=== PATIENT | male | born 1960 | race Asian ===

== ENCOUNTER 2016-11-25 09:01 | Outpatient (CLI) | payer BC, OTHER ==
[2016-11-25 10:34] LABS: *BILIRUBIN,URIN NEGATIVE (NEGATIVE); *BLOOD, URINE NEGATIVE (NEGATIVE); *CLARITY,URINE CLEAR (CLEAR); *COLOR,URINE YELLOW (YELLOW); *KETONES,URINE NEGATIVE (NEGATIVE); *PROTEIN,URINE TRACE (NEGATIVE); *UROBILINOGEN,URINE 0.2 E.U./dl (NORMAL); LEUKOCYTE ESTERASE ,URINE NEGATIVE (NEGATIVE); NITRITE, URINE NEGATIVE (NEGATIVE); UGLUCOSE NEGATIVE (NEGATIVE)
[2016-11-25 11:01] LABS: BACTERIA,URINE NONE SEEN /HPF (NONE SEEN); BILIRUBIN,TOTAL 0.5 mg/dL (0.2-1.0); CREATININE 1.1 mg/dL (0.6-1.3); MUCUS,URINE MODERATE /LPF (0-FEW); POTASSIUM 3.7 mmol/L (3.5-5.1); RBC,URINE 0-3 /HPF (0-3); SQUAMOUS EPITHELIAL CELL,UR FEW /HPF (NONE SEEN); TOTAL PROTEIN, SERUM 8.4 g/dL (6.4-8.2); WBC,URINE 0-3 /HPF (0-3)
[2016-11-25 11:17] LABS: BASOPHILS # (AUTO) 0.1 K/uL (0.0-8.0); BASOPHILS % (AUTO) 0.9 % (0.0-2.0); EOSINOPHILS # (AUTO) 0.2 K/uL (0.0-0.7); EOSINOPHILS % (AUTO) 2.8 % (0.0-7.0); HEMATOCRIT 47.4 % (40-50); HEMOGLOBIN 16.3 G/DL (14.0-18.0); LYMPHOCYTES # (AUTO) 2.9 K/UL (0.8-4.8); LYMPHOCYTES % (AUTO) 42.5 % (20.5-51.5); MEAN CORPUSCULAR HEMOGLOBIN 31.1 UUG (27.0-31.0); MEAN CORPUSCULAR HGB CONC 34 g/dL (32.0-37.0); MEAN CORPUSCULAR VOLUME 90.6 FL (82.0-92.0); MONOCYTES # (AUTO) 0.4 K/UL (0.1-1.30); MONOCYTES % (AUTO) 6.4 % (0.0-11.0); NEUTROPHILS # (AUTO) 3.3 K/UL (1.8-8.9); NEUTROPHILS % (AUTO) 47.4 % (38.5-71.5); PLATELET COUNT (AUTO) 209 K/UL (150-450); RED BLOOD CELL COUNT(AUTO) 5.23 MIL/UL (4.7-6.1); WHITE BLOOD COUNT (AUTO) 6.9 K/UL (4.0-11.2)
[2016-11-27 12:10] LABS: HEPATITIS B SURFACE AB Reactive (.); HEPATITIS B SURFACE AG Positive (Negative)
== END 2016-11-25 23:59 | disposition home or self-care (01) ==
LOC: LAB 09:01
DX: C22.8 Malignant neoplasm of liver, primary, unspecified as to type (principal)
CPT/HCPCS: 36415; 85025; 86704; 86706; 86803; 87340

== ENCOUNTER 2017-04-07 07:31 | Outpatient (CLI) | payer BC, OTHER ==
[2017-04-07 08:36] LABS: BILIRUBIN,TOTAL 0.5 mg/dL (0.2-1.0); POTASSIUM 3.9 mmol/L (3.5-5.1); TOTAL PROTEIN, SERUM 8.1 g/dL (6.4-8.2)
[2017-04-07 08:44] LABS: THYROID STIMULATING HORMONE 0.925 mIU/mL (0.358-3.740)
[2017-04-07 08:46] LABS: BASOPHILS % (AUTO) 0.6 % (0.0-2.0); EOSINOPHILS # (AUTO) 0.2 K/uL (0.0-0.7); EOSINOPHILS % (AUTO) 3.1 % (0.0-7.0); HEMATOCRIT 48.4 % (40-50); HEMOGLOBIN 16.4 G/DL (14.0-18.0); LYMPHOCYTES # (AUTO) 2.7 K/UL (0.8-4.8); MEAN CORPUSCULAR HEMOGLOBIN 30.6 UUG (27.0-31.0); MEAN CORPUSCULAR HGB CONC 34 g/dL (32.0-37.0); MEAN CORPUSCULAR VOLUME 90.5 FL (82.0-92.0); MONOCYTES # (AUTO) 0.4 K/UL (0.1-1.30); MONOCYTES % (AUTO) 6.9 % (0.0-11.0); NEUTROPHILS # (AUTO) 3.2 K/UL (1.8-8.9); NEUTROPHILS % (AUTO) 47.4 % (38.5-71.5); PLATELET COUNT (AUTO) 203 K/UL (150-450); RED BLOOD CELL COUNT(AUTO) 5.35 MIL/UL (4.7-6.1); WHITE BLOOD COUNT (AUTO) 6.5 K/UL (4.0-11.2)
== END 2017-04-07 23:59 | disposition home or self-care (01) ==
LOC: LAB 07:31
DX: I10 Essential (primary) hypertension (principal); E78.5 Hyperlipidemia, unspecified; R73.01 Impaired fasting glucose
CPT/HCPCS: 82043; 82570; 84443; 85025

== ENCOUNTER 2017-10-06 07:30 | Outpatient (CLI) | payer BC, OTHER ==
[2017-10-06 08:45] LABS: BILIRUBIN,TOTAL 0.6 mg/dL (0.2-1.0); POTASSIUM 3.7 mmol/L (3.5-5.1); TOTAL PROTEIN, SERUM 8.3 g/dL (6.4-8.2)
[2017-10-06 10:10] LABS: BASOPHILS # (AUTO) 0.1 K/uL (0.0-8.0); BASOPHILS % (AUTO) 0.8 % (0.0-2.0); EOSINOPHILS # (AUTO) 0.2 K/uL (0.0-0.7); EOSINOPHILS % (AUTO) 2.6 % (0.0-7.0); HEMATOCRIT 47.2 % (36.7-47.1); HEMOGLOBIN 16.3 g/dL (12.5-16.3); LYMPHOCYTES # (AUTO) 2.8 K/uL (20.0-40.0); LYMPHOCYTES % (AUTO) 42.1 % (20.5-51.5); MEAN CORPUSCULAR HEMOGLOBIN 31.3 uug (23.8-33.4); MEAN CORPUSCULAR HGB CONC 35 g/dL (32.5-36.3); MEAN CORPUSCULAR VOLUME 90.4 fL (73.0-96.2); MONOCYTES # (AUTO) 0.5 K/uL (2.0-10.0); MONOCYTES % (AUTO) 7.1 % (0.0-11.0); NEUTROPHILS # (AUTO) 3.2 K/uL (1.8-8.9); NEUTROPHILS % (AUTO) 47.4 % (38.5-71.5); PLATELET COUNT (AUTO) 196 K/uL (152-348); RED BLOOD CELL COUNT(AUTO) 5.22 MIL/uL (4.06-5.63); WHITE BLOOD COUNT (AUTO) 6.7 K/uL (3.6-10.2)
== END 2017-10-06 23:59 | disposition home or self-care (01) ==
LOC: LAB 07:30
DX: Z00.00 Encounter for general adult medical examination without abnormal findings (principal); I10 Essential (primary) hypertension; E78.5 Hyperlipidemia, unspecified; E66.9 Obesity, unspecified; R73.01 Impaired fasting glucose
CPT/HCPCS: 36415; 82306; 85025

== ENCOUNTER 2018-03-08 13:35 | Emergency (ER) | payer BC, OTHER ==
[~2018-03-08] VITALS: Ht 167.6 cm; Wt 81.6 kg
--- NOTE | 2018-03-08 13:58 | NUR ---
Patient discharged to home in stable conditon. Written and verbal after care instructions given. Patient verbalizes understanding of instructions.
[2018-03-08 14:05] VITALS: BP 149/93
== END 2018-03-08 14:05 | disposition home or self-care (01) ==
LOC: ER 13:35
DX: J20.9 Acute bronchitis, unspecified (principal); I10 Essential (primary) hypertension
CPT/HCPCS: A4663

== ENCOUNTER 2018-05-10 07:51 | Outpatient (CLI) | END 2018-05-10 23:59 | disposition home or self-care (01) | DX: R73.01 Impaired fasting glucose (principal); I10 Essential (primary) hypertension; E78.5 Hyperlipidemia, unspecified ==

== ENCOUNTER 2018-10-19 06:35 | Outpatient (CLI) | payer BC, OTHER ==
[2018-10-19 10:02] LABS: *BILIRUBIN,URIN NEGATIVE (NEGATIVE); *BLOOD, URINE NEGATIVE (NEGATIVE); *CLARITY,URINE CLEAR (CLEAR); *COLOR,URINE YELLOW (YELLOW); *KETONES,URINE NEGATIVE (NEGATIVE); *UROBILINOGEN,URINE 0.2 E.U./dl (NORMAL); LEUKOCYTE ESTERASE ,URINE NEGATIVE (NEGATIVE); NITRITE, URINE NEGATIVE (NEGATIVE); PH,URINE 5.5 (5.0-8.0); UGLUCOSE NEGATIVE (NEGATIVE)
[2018-10-19 10:05] LABS: BASOPHILS # (AUTO) 0.1 K/uL (0.0-8.0); BASOPHILS % (AUTO) 0.9 % (0.0-2.0); EOSINOPHILS # (AUTO) 0.2 K/uL (0.0-0.7); EOSINOPHILS % (AUTO) 2.8 % (0.0-7.0); HEMATOCRIT 46.6 % (36.7-47.1); HEMOGLOBIN 15.7 g/dL (12.5-16.3); LYMPHOCYTES # (AUTO) 3.1 K/uL (20.0-40.0); LYMPHOCYTES % (AUTO) 43.2 % (20.5-51.5); MEAN CORPUSCULAR HEMOGLOBIN 30.7 uug (23.8-33.4); MEAN CORPUSCULAR HGB CONC 34 g/dL (32.5-36.3); MEAN CORPUSCULAR VOLUME 91.1 fL (73.0-96.2); MONOCYTES # (AUTO) 0.5 K/uL (2.0-10.0); MONOCYTES % (AUTO) 6.8 % (0.0-11.0); NEUTROPHILS # (AUTO) 3.3 K/uL (1.8-8.9); NEUTROPHILS % (AUTO) 46.3 % (38.5-71.5); PLATELET COUNT (AUTO) 204 K/uL (152-348); RED BLOOD CELL COUNT(AUTO) 5.12 MIL/uL (4.06-5.63); WHITE BLOOD COUNT (AUTO) 7.1 K/uL (3.6-10.2)
[2018-10-19 10:16] LABS: BILIRUBIN,TOTAL 0.6 mg/dL (0.2-1.0); CREATININE 0.9 mg/dL (0.6-1.3); MAGNESIUM 1.9 mg/dL (1.8-2.4); POTASSIUM 3.9 mmol/L (3.5-5.1)
[2018-10-19 10:20] LABS: THYROID STIMULATING HORMONE 0.728 mIU/mL (0.358-3.740)
== END 2018-10-19 23:59 | disposition home or self-care (01) ==
LOC: LAB 06:35
DX: M43.17 Spondylolisthesis, lumbosacral region (principal); M47.816 Spondylosis without myelopathy or radiculopathy, lumbar region; M25.78 Osteophyte, vertebrae; I10 Essential (primary) hypertension; E78.5 Hyperlipidemia, unspecified; E66.9 Obesity, unspecified
CPT/HCPCS: 72110; 73502; 82043; 82570; 83735; 84443; 85025; 87086

== ENCOUNTER 2019-01-19 07:32 | Outpatient (CLI) | payer BC, OTHER ==
[2019-01-19 09:23] LABS: BASOPHILS % (AUTO) 0.9 % (0.0-2.0); EOSINOPHILS # (AUTO) 0.2 K/uL (0.0-0.7); EOSINOPHILS % (AUTO) 4.6 % (0.0-7.0); HEMATOCRIT 46.1 % (36.7-47.1); HEMOGLOBIN 15.5 g/dL (12.5-16.3); LYMPHOCYTES # (AUTO) 2.3 K/uL (20.0-40.0); LYMPHOCYTES % (AUTO) 43.3 % (20.5-51.5); MEAN CORPUSCULAR HEMOGLOBIN 31.3 uug (23.8-33.4); MEAN CORPUSCULAR HGB CONC 34 g/dL (32.5-36.3); MEAN CORPUSCULAR VOLUME 93.2 fL (73.0-96.2); MONOCYTES # (AUTO) 0.4 K/uL (2.0-10.0); MONOCYTES % (AUTO) 8.2 % (0.0-11.0); NEUTROPHILS # (AUTO) 2.2 K/uL (1.8-8.9); PLATELET COUNT (AUTO) 180 K/uL (152-348); RED BLOOD CELL COUNT(AUTO) 4.95 MIL/uL (4.06-5.63); WHITE BLOOD COUNT (AUTO) 5.2 K/uL (3.6-10.2)
[2019-01-19 09:26] LABS: IRON, SERUM 137 ug/dL (50-175)
[2019-01-19 09:40] LABS: FERRITIN 504 ng/mL (26-388); LACTATE DEHYDROGENASE 348 U/L (85-227)
[2019-01-19 10:02] LABS: *RHEUMATOID FACTOR SCREEN NEGATIVE (NEGATIVE)
== END 2019-01-19 23:59 | disposition home or self-care (01) ==
LOC: LAB 07:32
DX: R53.83 Other fatigue (principal); M25.50 Pain in unspecified joint
CPT/HCPCS: 36415; 83550; 83615; 84466; 85025; 85651; 86038; 86430

== ENCOUNTER 2019-02-09 08:53 | Emergency (ER) | payer BC, OTHER ==
[~2019-02-09] VITALS: Ht 167.6 cm; Wt 81.6 kg
[2019-02-09] MEDS ORDERED: LOSA25TA27 PO (09:01)
[2019-02-09] MEDS ORDERED: MONT10TA22 PO (09:01)
--- NOTE | 2019-02-09 09:08 | NUR ---
Dr Haney at the bedside for eval.
[2019-02-09] MEDS ORDERED: TDAP DIPH,PERTUSS,TET VAC/PF 0.5 ML DISP.SYRIN IM ONE ×2 (09:15→09:20)
[2019-02-09] MEDS ORDERED: NEOMY/BACITRA/POLYMYXIN B OINT UD PACKET TP ONE ×2 (09:24→09:30)
[2019-02-09 09:31] VITALS: BP 157/96
== END 2019-02-09 09:31 | disposition home or self-care (01) ==
LOC: ER 08:53
DX: S61.211A Laceration without foreign body of left index finger without damage to nail, initial encounter (principal); I10 Essential (primary) hypertension; Z88.0 Allergy status to penicillin; Z79.899 Other long term (current) drug therapy; W26.0XXA Contact with knife, initial encounter; Y93.89 Activity, other specified; Y92.89 Other specified places as the place of occurrence of the external cause; Y99.8 Other external cause status
CPT/HCPCS: 90715; A4663

== ENCOUNTER 2019-02-21 10:43 | Outpatient (CLI) | payer BC, OTHER ==
[~2019-02-21 10:43] MED LIST: LOSA25TA27 PO; MONT10TA22 PO
[2019-02-21] MEDS ORDERED: IV NORMAL SALINE 250 ML IV ONE (11:17)
[2019-02-21] MEDS ORDERED: BARIUM SULFATE 450 ML ORAL.SUSP ONE (11:17)
[2019-02-21] MEDS ORDERED: SWABABLE VALVE TRANSFER SET EA MC ONE (11:17)
[2019-02-21] MEDS ORDERED: IOHEXOL 300MG/ML 100 ML INFUS..BTL ONE (11:17)
== END 2019-02-21 23:59 | disposition home or self-care (01) ==
LOC: CT 10:43
DX: K42.9 Umbilical hernia without obstruction or gangrene (principal); K80.20 Calculus of gallbladder without cholecystitis without obstruction; I70.0 Atherosclerosis of aorta; K82.9 Disease of gallbladder, unspecified; M47.815 Spondylosis without myelopathy or radiculopathy, thoracolumbar region; M53.87 Other specified dorsopathies, lumbosacral region
CPT/HCPCS: 36415; 71260; 84520; J7050; Q9951; Q9967

== ENCOUNTER 2019-08-11 21:37 | Emergency (ER) | payer BC, OTHER ==
[~2019-08-11] VITALS: Ht 167.6 cm; Wt 79.4 kg
--- NOTE | 2019-08-11 22:14 | NUR ---
PATIENT WAS MSE BY DR VALERIO IN ROOM 05A. PATIENT A & O X3.
--- NOTE | 2019-08-11 22:25 | NUR ---
Patient discharged to home in stable condition. Written and verbal after care instructions given. Patient verbalizes understanding of instructions.
[2019-08-11 22:30] VITALS: BP 158/88
== END 2019-08-11 22:34 | disposition home or self-care (01) ==
LOC: ER 21:37
DX: H66.91 Otitis media, unspecified, right ear (principal); I10 Essential (primary) hypertension
CPT/HCPCS: A4663

== ENCOUNTER 2019-08-12 16:56 | Emergency (ER) | payer BC, OTHER ==
[~2019-08-12] VITALS: Ht 167.6 cm; Wt 79.4 kg
[2019-08-12] MEDS ORDERED: CEFTRIAXONE 1 G VIAL IM ONE (19:00)
[2019-08-12] MEDS ORDERED: LIDOCAINE HCL 1% 20 ML VIAL ONE (19:03)
[2019-08-12] MEDS ORDERED: CEFTRIAXONE 1 G VIAL ONE (19:03)
--- NOTE | 2019-08-12 19:34 | NUR ---
Patient discharged to home in stable conditon. Written and verbal after care instructions given. Patient verbalizes understanding of instructions. Walked out of ER with no distress noted.
[2019-08-12 19:35] VITALS: BP 135/65
== END 2019-08-12 19:35 | disposition home or self-care (01) ==
LOC: ER 16:56
DX: J02.9 Acute pharyngitis, unspecified (principal); I88.9 Nonspecific lymphadenitis, unspecified; I10 Essential (primary) hypertension
CPT/HCPCS: 96372; 99283; J0696; J3490; A4663

== ENCOUNTER 2019-08-13 15:58 | Emergency (ER) | payer BC, OTHER ==
[~2019-08-13] VITALS: Ht 167.6 cm; Wt 77.1 kg
--- NOTE | 2019-08-13 16:20 | NUR ---
[facility] in [facility] - 08/13/19 at 1723 by [id number] PATIENT WAS MSE BY DR ROMAN IN ROM . PATIENT A & O X3.
--- NOTE | 2019-08-13 16:20 | NUR ---
PATIENT WAS MSE BY DR ROMAN IN ROOM 04A. PATIENT A & O X3.
[2019-08-13 17:13] LABS: BASOPHILS % (AUTO) 0.2 % (0.0-2.0); EOSINOPHILS % (AUTO) 0.1 % (0.0-7.0); HEMATOCRIT 44.8 % (36.7-47.1); HEMOGLOBIN 15.5 g/dL (12.5-16.3); LYMPHOCYTES # (AUTO) 1.8 K/uL (20.0-40.0); LYMPHOCYTES % (AUTO) 12.9 % (20.5-51.5); MEAN CORPUSCULAR HEMOGLOBIN 31.3 uug (23.8-33.4); MEAN CORPUSCULAR HGB CONC 35 g/dL (32.5-36.3); MEAN CORPUSCULAR VOLUME 90.5 fL (73.0-96.2); MONOCYTES # (AUTO) 1.5 K/uL (2.0-10.0); MONOCYTES % (AUTO) 10.2 % (0.0-11.0); NEUTROPHILS # (AUTO) 10.9 K/uL (1.8-8.9); NEUTROPHILS % (AUTO) 76.6 % (38.5-71.5); PLATELET COUNT (AUTO) 160 K/uL (152-348); RED BLOOD CELL COUNT(AUTO) 4.95 MIL/uL (4.06-5.63); WHITE BLOOD COUNT (AUTO) 14.3 K/uL (3.6-10.2)
[2019-08-13] MEDS ORDERED: ACETAMINOPHEN 325 MG TABLET PO ONE (17:30)
--- NOTE | 2019-08-13 17:30 | NUR ---
Patient is resting comfortably in bed with eyes closed
[2019-08-13] MEDS ORDERED: ACETAMINOPHEN 325 MG TABLET ONE (17:34)
--- NOTE | 2019-08-13 18:00 | NUR ---
DR ROMAN MADE PATIENT AWARE OF TEST RESULTS.
--- NOTE | 2019-08-13 18:36 | NUR ---
Patient discharged to home in stable condition. Written and verbal after care instructions given. Patient verbalizes understanding of instructions.
[2019-08-13 18:37] VITALS: BP 150/87
== END 2019-08-13 18:39 | disposition home or self-care (01) ==
LOC: ER 15:59
DX: J02.9 Acute pharyngitis, unspecified (principal); R50.9 Fever, unspecified; I10 Essential (primary) hypertension; J45.909 Unspecified asthma, uncomplicated; H66.92 Otitis media, unspecified, left ear; R00.0 Tachycardia, unspecified
CPT/HCPCS: 36415; 71045; 83605; 85025; 86403; 87040; 87070; 87400; 93005; U0002

== ENCOUNTER 2020-03-09 08:10 | Outpatient (CLI) | payer BC, OTHER ==
[~2020-03-09 08:10] MED LIST changes: +AMOX875T2 PO
[2020-03-09 08:56] LABS: *BILIRUBIN,URIN NEGATIVE (NEGATIVE); *BLOOD, URINE NEGATIVE (NEGATIVE); *CLARITY,URINE CLEAR (CLEAR); *COLOR,URINE YELLOW (YELLOW); *KETONES,URINE NEGATIVE (NEGATIVE); *UROBILINOGEN,URINE 0.2 E.U./dl (NORMAL); LEUKOCYTE ESTERASE ,URINE NEGATIVE (NEGATIVE); NITRITE, URINE NEGATIVE (NEGATIVE); PH,URINE 5.5 (5.0-8.0); UGLUCOSE NEGATIVE (NEGATIVE)
[2020-03-09 08:57] LABS: BASOPHILS # (AUTO) 0.1 K/uL (0.0-8.0); BASOPHILS % (AUTO) 1.3 % (0.0-2.0); EOSINOPHILS # (AUTO) 0.2 K/uL (0.0-0.7); EOSINOPHILS % (AUTO) 3.5 % (0.0-7.0); HEMATOCRIT 46.1 % (36.7-47.1); HEMOGLOBIN 16.1 g/dL (12.5-16.3); LYMPHOCYTES # (AUTO) 2.9 K/uL (20.0-40.0); MEAN CORPUSCULAR HEMOGLOBIN 31.6 uug (23.8-33.4); MEAN CORPUSCULAR HGB CONC 35 g/dL (32.5-36.3); MEAN CORPUSCULAR VOLUME 90.7 fL (73.0-96.2); MONOCYTES # (AUTO) 0.3 K/uL (2.0-10.0); MONOCYTES % (AUTO) 5.8 % (0.0-11.0); NEUTROPHILS # (AUTO) 2.5 K/uL (1.8-8.9); NEUTROPHILS % (AUTO) 41.4 % (38.5-71.5); PLATELET COUNT (AUTO) 192 K/uL (152-348); RED BLOOD CELL COUNT(AUTO) 5.09 MIL/uL (4.06-5.63); WHITE BLOOD COUNT (AUTO) 5.9 K/uL (3.6-10.2)
[2020-03-09 09:03] LABS: BILIRUBIN,TOTAL 0.3 mg/dL (0.2-1.0); MAGNESIUM 2.5 mg/dL (1.8-2.4); TOTAL PROTEIN, SERUM 8.3 g/dL (6.4-8.2)
[2020-03-09 09:10] LABS: THYROID STIMULATING HORMONE 0.843 mIU/mL (0.358-3.740)
[2020-03-11 08:06] LABS: INSULIN 23.7 uIU/mL (2.6-24.9)
== END 2020-03-09 23:59 | disposition home or self-care (01) ==
LOC: LAB 08:10
DX: I10 Essential (primary) hypertension (principal); E78.5 Hyperlipidemia, unspecified; N20.0 Calculus of kidney; K80.20 Calculus of gallbladder without cholecystitis without obstruction
CPT/HCPCS: 36415; 76700; 82306; 83525; 83735; 84443; 85025; 85651; 86140

== ENCOUNTER 2020-09-03 06:59 | Outpatient (CLI) | payer BC, OTHER ==
[2020-09-03 07:35] LABS: BASOPHILS # (AUTO) 0.1 K/uL (0.0-8.0); BASOPHILS % (AUTO) 0.9 % (0.0-2.0); EOSINOPHILS # (AUTO) 0.3 K/uL (0.0-0.7); EOSINOPHILS % (AUTO) 4.1 % (0.0-7.0); HEMOGLOBIN 15.7 g/dL (12.5-16.3); MEAN CORPUSCULAR HEMOGLOBIN 30.8 uug (23.8-33.4); MEAN CORPUSCULAR HGB CONC 34 g/dL (32.5-36.3); MONOCYTES # (AUTO) 0.5 K/uL (2.0-10.0); MONOCYTES % (AUTO) 7.7 % (0.0-11.0); NEUTROPHILS # (AUTO) 3.2 K/uL (1.8-8.9); NEUTROPHILS % (AUTO) 45.3 % (38.5-71.5); PLATELET COUNT (AUTO) 189 K/uL (152-348); RED BLOOD CELL COUNT(AUTO) 5.11 MIL/uL (4.06-5.63); WHITE BLOOD COUNT (AUTO) 7.1 K/uL (3.6-10.2)
[2020-09-03 07:39] LABS: *BILIRUBIN,URIN NEGATIVE (NEGATIVE); *BLOOD, URINE NEGATIVE (NEGATIVE); *CLARITY,URINE CLEAR (CLEAR); *COLOR,URINE YELLOW (YELLOW); *KETONES,URINE NEGATIVE (NEGATIVE); *UROBILINOGEN,URINE 0.2 E.U./dl (NORMAL); LEUKOCYTE ESTERASE ,URINE NEGATIVE (NEGATIVE); NITRITE, URINE NEGATIVE (NEGATIVE); UGLUCOSE NEGATIVE (NEGATIVE)
[2020-09-03 08:05] LABS: THYROID STIMULATING HORMONE 1.035 mIU/mL (0.358-3.740)
[2020-09-03 08:12] LABS: BILIRUBIN,TOTAL 0.6 mg/dL (0.2-1.0); MAGNESIUM 2.1 mg/dL (1.8-2.4); POTASSIUM 3.6 mmol/L (3.5-5.1)
[2020-09-04 05:13] LABS: *OCCULT BLOOD STOOL POSITIVE (NEGATIVE)
== END 2020-09-03 23:59 | disposition home or self-care (01) ==
LOC: LAB 06:59
DX: I10 Essential (primary) hypertension (principal); E78.5 Hyperlipidemia, unspecified; R73.01 Impaired fasting glucose
CPT/HCPCS: 36415; 83550; 83735; 84153; 84443; 85025; 85651; 86140

== ENCOUNTER 2020-09-04 08:44 | Outpatient (CLI) | payer BC, OTHER | END 2020-09-04 23:59 | disposition home or self-care (01) | LOC: US 08:44 | DX: K80.20 Calculus of gallbladder without cholecystitis without obstruction (principal) ==

== ENCOUNTER 2021-01-17 07:10 | Outpatient (CLI) | payer BC, OTHER ==
[2021-01-17 11:02] LABS: *BILIRUBIN,URIN NEGATIVE (NEGATIVE); *BLOOD, URINE NEGATIVE (NEGATIVE); *CLARITY,URINE CLEAR (CLEAR); *COLOR,URINE YELLOW (YELLOW); *KETONES,URINE NEGATIVE (NEGATIVE); *UROBILINOGEN,URINE 0.2 E.U./dl (NORMAL); LEUKOCYTE ESTERASE ,URINE NEGATIVE (NEGATIVE); NITRITE, URINE NEGATIVE (NEGATIVE); UGLUCOSE NEGATIVE (NEGATIVE)
[2021-01-17 11:06] LABS: HEMATOCRIT 47.9 % (36.7-47.1); MEAN CORPUSCULAR HEMOGLOBIN 31.6 uug (23.8-33.4); MEAN CORPUSCULAR VOLUME 92.6 fL (73.0-96.2); PLATELET COUNT (AUTO) 205 K/uL (152-348)
[2021-01-17 11:11] LABS: IRON, SERUM 127 ug/dL (50-175)
[2021-01-17 11:13] LABS: ALANINE AMINOTRANSFERASE 29 U/L (16-63); ALKALINE PHOSPHATASE 66 U/L (50-136); ASPARTATE AMINOTRANSFERASE 27 U/L (15-37); BILIRUBIN,TOTAL 0.5 mg/dL (0.2-1.0); CARBON DIOXIDE 28 mmol/L (21-32); CHLORIDE 105 mmol/L (98-107); CREATININE 0.9 mg/dL (0.6-1.3); GLUCOSE 108 mg/dL (74-106); MAGNESIUM 2.4 mg/dL (1.8-2.4); POTASSIUM 4.2 mmol/L (3.5-5.1); TOTAL PROTEIN, SERUM 8.4 g/dL (6.4-8.2); UREA NITROGEN, BLOOD 20 mg/dL (7-18)
[2021-01-17 11:22] LABS: THYROID STIMULATING HORMONE 0.918 mIU/mL (0.358-3.740)
[2021-01-17 11:50] LABS: CHOLESTEROL 189 mg/dL (<200); FERRITIN 439 ng/mL (26-388); HDL CHOLESTEROL 41 mg/dL (40-60); TRIGLYCERIDES 107 MG/DL (30-150)
== END 2021-01-17 23:59 | disposition home or self-care (01) ==
LOC: LAB 07:10
PROVIDERS: ATTEND Internal Medicine
DX: E78.5 Hyperlipidemia, unspecified (principal); R73.01 Impaired fasting glucose
CPT/HCPCS: 36415; 82306; 83550; 83735; 84443; 85025; 85651; 86140

== ENCOUNTER 2021-06-21 06:02 | Outpatient (CLI) | payer BC, OTHER | END 2021-06-21 23:59 | disposition home or self-care (01) | LOC: LAB 06:02 | PROVIDERS: ATTEND Internal Medicine Gastroenterology | DX: Z01.812 Encounter for preprocedural laboratory examination (principal); Z20.822 Contact with and (suspected) exposure to COVID-19 ==

== ENCOUNTER 2021-06-24 11:13 | Day surgery (SDC) | payer BC, OTHER ==
[2021-06-24] MEDS ORDERED: LIDOCAINE-MPF 2% 5 ML VIAL IJ ONE (11:14)
[2021-06-24] MEDS ORDERED: PROPOFOL 200 MG/20 ML BOTTLE IV ONE (11:14)
[2021-06-24] MEDS ORDERED: GLYCOPYRROLATE 0.2 MG/ML VIAL IJ ONE (11:14)
[2021-06-24 11:52] LABS: HEMATOCRIT 49.6 % (36.7-47.1); PLATELET COUNT (AUTO) 206 K/uL (152-348)
[2021-06-24 11:58] LABS: POTASSIUM 3.7 mmol/L (3.5-5.1)
[2021-06-24 12:01] LABS: *BILIRUBIN,URIN NEGATIVE (NEGATIVE); *BLOOD, URINE NEGATIVE (NEGATIVE); *COLOR,URINE YELLOW (YELLOW); *KETONES,URINE NEGATIVE (NEGATIVE); *UROBILINOGEN,URINE 0.2 E.U./dl (NORMAL); LEUKOCYTE ESTERASE ,URINE NEGATIVE (NEGATIVE); NITRITE, URINE NEGATIVE (NEGATIVE); PH,URINE 5.5 (5.0-8.0); UGLUCOSE NEGATIVE (NEGATIVE)
[2021-06-24 12:03] LABS: BILIRUBIN,TOTAL 0.7 mg/dL (0.2-1.0); TOTAL PROTEIN, SERUM 8.5 g/dL (6.4-8.2)
[2021-06-24 16:58] LABS: *CLARITY,URINE SLIGHTLY HAZY (CLEAR); BACTERIA,URINE NONE SEEN /HPF (NONE SEEN); RBC,URINE 0-3 /HPF (0-3); SQUAMOUS EPITHELIAL CELL,UR NONE SEEN /HPF (NONE SEEN); WBC,URINE 0-3 /HPF (0-3)
[2021-06-24 16:59] LABS: URINE AMORPHOUS URATE MODERATE /HPF
== END 2021-06-24 15:11 | disposition home or self-care (01) ==
LOC: DS 11:13
PROVIDERS: ATTEND Internal Medicine Gastroenterology
DX: K59.00 Constipation, unspecified (principal); K64.8 Other hemorrhoids; K63.89 Other specified diseases of intestine; I10 Essential (primary) hypertension; Z87.891 Personal history of nicotine dependence; Z79.899 Other long term (current) drug therapy; Z98.890 Other specified postprocedural states; Z88.0 Allergy status to penicillin
CPT/HCPCS: 36415; 71045; 85025; 85730; 93005; A4217; J3490

== ENCOUNTER 2021-09-27 10:21 | Outpatient (CLI) | payer BC, OTHER | END 2021-09-27 23:59 | disposition home or self-care (01) | LOC: RAD 10:21 | PROVIDERS: ATTEND Psychiatry & Neurology Psychiatry | DX: M43.16 Spondylolisthesis, lumbar region (principal); M51.26 Other intervertebral disc displacement, lumbar region; M25.78 Osteophyte, vertebrae; M25.551 Pain in right hip | CPT/HCPCS: 72110; 73502 ==

== ENCOUNTER 2022-01-04 13:07 | Emergency (ER) | payer BC, OTHER ==
[~2022-01-04] VITALS: Ht 167.6 cm; Wt 77.1 kg
[2022-01-04] MEDS ORDERED: LORA10TA7 PO (13:25)
[2022-01-04] MEDS ORDERED: ACETAMINOPHEN 325 MG TABLET PO ONE (15:15)
[2022-01-04] MEDS ORDERED: ACETAMINOPHEN ES 500 MG TABLET ONE (15:24)
--- NOTE | 2022-01-04 15:32 | NUR ---
PT SEEN AND EVALUATED BY DR FABIAN; MEDICATED FOR PAIN, SWAB SPECIMEN OBTAINED AND SENT TO LAB.
[2022-01-04] MEDS ORDERED: CEPH500C2 PO (16:32)
--- NOTE | 2022-01-04 16:35 | NUR ---
DCD instructions and prescription discussed with pt. who verbalized understanding. Pt. left room in no distress accompinied by . Ambulatory, steady gait.
== END 2022-01-04 16:37 | disposition home or self-care (01) ==
LOC: ER 13:09
DX: I88.9 Nonspecific lymphadenitis, unspecified (principal); I10 Essential (primary) hypertension
CPT/HCPCS: 70360; 86403; 87070; A4663; A9150

== ENCOUNTER 2022-07-15 07:26 | Outpatient (CLI) | payer BC, OTHER ==
[~2022-07-15 07:26] MED LIST changes: -AMOX875T2 PO; +CEPH500C2 PO; +LORA10TA7 PO
[2022-07-15 10:50] LABS: HEMATOCRIT 46.7 % (36.7-47.1); MEAN CORPUSCULAR HEMOGLOBIN 30.9 uug (23.8-33.4); MEAN CORPUSCULAR VOLUME 91.8 fL (73.0-96.2); PLATELET COUNT (AUTO) 197 K/uL (152-348)
[2022-07-15 10:55] LABS: *BILIRUBIN,URIN NEGATIVE (NEGATIVE); *BLOOD, URINE NEGATIVE (NEGATIVE); *CLARITY,URINE CLEAR (CLEAR); *COLOR,URINE YELLOW (YELLOW); *KETONES,URINE NEGATIVE (NEGATIVE); *UROBILINOGEN,URINE 0.2 E.U./dl (NORMAL); LEUKOCYTE ESTERASE ,URINE NEGATIVE (NEGATIVE); NITRITE, URINE NEGATIVE (NEGATIVE); UGLUCOSE NEGATIVE (NEGATIVE)
[2022-07-15 11:45] LABS: ALANINE AMINOTRANSFERASE 36 U/L (16-63); ALKALINE PHOSPHATASE 61 U/L (50-136); ASPARTATE AMINOTRANSFERASE 27 U/L (15-37); BILIRUBIN,TOTAL 0.6 mg/dL (0.2-1.0); CARBON DIOXIDE 30 mmol/L (21-32); CHLORIDE 102 mmol/L (98-107); CHOLESTEROL 208 mg/dL (<200); FERRITIN 475 ng/mL (26-388); GLUCOSE 113 mg/dL (74-106); HDL CHOLESTEROL 45 mg/dL (40-60); MAGNESIUM 2.1 mg/dL (1.8-2.4); POTASSIUM 4.3 mmol/L (3.5-5.1); TOTAL PROTEIN, SERUM 8.3 g/dL (6.4-8.2); TRIGLYCERIDES 150 MG/DL (30-150); UREA NITROGEN, BLOOD 22 mg/dL (7-18); URIC ACID 7.2 mg/dL (3.5-7.2)
[2022-07-17 01:06] LABS: *MICROALBUMIN, UR 17.4 ug/mL (Not Estab.); CREATININE, URINE 98.9 mg/dL (Not Estab.)
== END 2022-07-15 23:59 | disposition home or self-care (01) ==
LOC: LAB 07:26
PROVIDERS: ATTEND Internal Medicine
DX: I10 Essential (primary) hypertension (principal); R73.01 Impaired fasting glucose
CPT/HCPCS: 82043; 82306; 82570; 83735; 84443; 84550; 85025; 85651; 86140

== ENCOUNTER 2022-08-26 20:36 | Emergency (ER) | payer BC, OTHER ==
[~2022-08-26] VITALS: Ht 167.6 cm; Wt 74.8 kg
[2022-08-26 21:48] LABS: HEMATOCRIT 42.7 % (36.7-47.1); MEAN CORPUSCULAR HEMOGLOBIN 31.4 uug (23.8-33.4); MEAN CORPUSCULAR VOLUME 90.8 fL (73.0-96.2); PLATELET COUNT (AUTO) 165 K/uL (152-348)
[2022-08-26 21:57] LABS: CREATININE 0.9 mg/dL (0.6-1.3); POTASSIUM 3.9 mmol/L (3.5-5.1)
[2022-08-26 22:02] LABS: BILIRUBIN,DIRECT 0.1 mg/dL (0.0-0.2); BILIRUBIN,TOTAL 0.6 mg/dL (0.2-1.0)
[2022-08-26 22:08] LABS: NEUTROPHILS % (MANUAL) 50 % (42-75)
[2022-08-26 22:09] LABS: BAND % (MANUAL) 2 % (0-10); EOSINOPHILS % (MANUAL) 5 % (0-8); LYMPHOCYTES % (MANUAL) 28 % (20-40); MONOCYTES % (MANUAL) 15 % (2-10)
[2022-08-26] MEDS ORDERED: BLOO-1730 MC ×2 (22:29)
[2022-08-26 22:57] VITALS: BP 162/72
== END 2022-08-26 22:40 | disposition home or self-care (01) ==
LOC: ER 20:36
DX: J98.01 Acute bronchospasm (principal); I10 Essential (primary) hypertension; Z88.0 Allergy status to penicillin; Z79.899 Other long term (current) drug therapy
CPT/HCPCS: 36415; 70030-TC; 83735; 85025; A4663

== ENCOUNTER 2022-09-05 09:34 | Outpatient (CLI) | payer BC, OTHER ==
[~2022-09-05 09:34] MED LIST changes: +BLOO-1730 MC
[2022-09-08 06:06] LABS: ALBUMIN 3.7 g/dL (2.9-4.4); ALPHA-1-GLOBULIN 0.2 g/dL (0.0-0.4); ALPHA-2-GLOBULIN 0.8 g/dL (0.4-1.0); BETA GLOBULIN 1.2 g/dL (0.7-1.3); GAMMA GLOBULIN 1.4 g/dL (0.4-1.8); GLOBULIN, TOTAL 3.6 g/dL (2.2-3.9); M-SPIKE Not Observed g/dL (Not Observed)
== END 2022-09-05 23:59 | disposition home or self-care (01) ==
LOC: LAB 09:34
PROVIDERS: ATTEND Internal Medicine
DX: D80.1 Nonfamilial hypogammaglobulinemia (principal)
CPT/HCPCS: 36415; 84155; 84165

== ENCOUNTER 2022-10-21 08:27 | Outpatient (CLI) | payer BC, OTHER ==
[2022-10-21 09:34] LABS: HEMATOCRIT 44.2 % (36.7-47.1); MEAN CORPUSCULAR HEMOGLOBIN 31.4 uug (23.8-33.4); MEAN CORPUSCULAR VOLUME 92.6 fL (73.0-96.2); PLATELET COUNT (AUTO) 206 K/uL (152-348)
[2022-10-21 09:45] LABS: BILIRUBIN,TOTAL 0.5 mg/dL (0.2-1.0); POTASSIUM 4.1 mmol/L (3.5-5.1); TOTAL PROTEIN, SERUM 8.3 g/dL (6.4-8.2)
[2022-10-22 10:07] LABS: HEPATITIS B SURFACE AG Positive (Negative)
== END 2022-10-21 23:59 | disposition home or self-care (01) ==
LOC: LAB 08:27
PROVIDERS: ATTEND Internal Medicine
DX: Z11.59 Encounter for screening for other viral diseases (principal); B97.89 Other viral agents as the cause of diseases classified elsewhere
CPT/HCPCS: 36415; 85025; 86704; 86706; 87340

== ENCOUNTER 2024-04-16 08:36 | Emergency (ER) | payer BC, OTHER ==
[~2024-04-16] VITALS: Ht 167.6 cm; Wt 72.6 kg
[2024-04-16 09:26] LABS: BASOPHILS # (AUTO) 0.1 K/UL (0.0-0.2); BASOPHILS % (AUTO) 0.6 % (0.0-2.0); EOSINOPHILS # (AUTO) 0.4 K/uL (0.0-0.7); EOSINOPHILS % (AUTO) 3.8 % (0.0-7.0); HEMATOCRIT 41.4 % (36.7-47.1); HEMOGLOBIN 14.3 g/dL (12.5-16.3); LYMPHOCYTES # (AUTO) 2.4 K/uL (0.8-4.8); LYMPHOCYTES % (AUTO) 22.3 % (20.5-51.5); MEAN CORPUSCULAR HEMOGLOBIN 31.7 uug (23.8-33.4); MEAN CORPUSCULAR HGB CONC 35 g/dL (32.5-36.3); MEAN CORPUSCULAR VOLUME 91.7 fL (73.0-96.2); MONOCYTES # (AUTO) 0.9 K/uL (0.1-1.30); MONOCYTES % (AUTO) 8.3 % (0.0-11.0); PLATELET COUNT (AUTO) 178 K/uL (152-348); RED BLOOD CELL COUNT(AUTO) 4.51 MIL/uL (4.06-5.63); RED CELL DISTRIBUTION WIDTH 12.6 % (12.1-16.2); WHITE BLOOD COUNT (AUTO) 10.8 K/uL (3.6-10.2)
[2024-04-16 09:27] LABS: DIFFERENTIAL COMMENT 1
[2024-04-16 10:08] LABS: ALANINE AMINOTRANSFERASE 24 U/L (16-63); ALBUMIN 3.8 g/dL (3.4-5.0); ALKALINE PHOSPHATASE 71 U/L (50-136); ASPARTATE AMINOTRANSFERASE 15 U/L (15-37); BILIRUBIN,DIRECT 0.2 mg/dL (0.0-0.2); BILIRUBIN,TOTAL 0.6 mg/dL (0.2-1.0); CARBON DIOXIDE 29 mmol/L (21-32); CHLORIDE 105 mmol/L (98-107); CREATININE 0.9 mg/dL (0.6-1.3); GLUCOSE 117 mg/dL (74-106); POTASSIUM 4.3 mmol/L (3.5-5.1); SODIUM SERUM 143 mmol/L (136-145); TOTAL PROTEIN, SERUM 7.9 g/dL (6.4-8.2); UREA NITROGEN, BLOOD 21 mg/dL (7-18)
[2024-04-16 11:40] LABS: NT-PRO BNP 133 pg/mL (0-125)
[2024-04-16] MEDS ORDERED: ACET1TAB23 PO (12:59)
[2024-04-16] MEDS ORDERED: PRED50TA PO (12:59)
[2024-04-16] MEDS ORDERED: AZIT500T PO (12:59)
[2024-04-16] MEDS ORDERED: AZITHROMYCIN 250 MG TABLET ONE (13:01)
[2024-04-16] MEDS: predniSONE 50 MG TABLET PO ONE (13:02)
[2024-04-16] MEDS: AZITHROMYCIN 250 MG TABLET PO ONE (13:02)
[2024-04-16] MEDS ORDERED: predniSONE 50 MG TABLET ONE (13:02)
[2024-04-16 13:18] VITALS: BP 153/56; O2SAT 97
== END 2024-04-16 13:21 | disposition home or self-care (01) ==
LOC: ER 08:36
DX: J18.9 Pneumonia, unspecified organism (principal); I11.9 Hypertensive heart disease without heart failure; Z79.52 Long term (current) use of systemic steroids; Z79.899 Other long term (current) drug therapy; Z88.0 Allergy status to penicillin; Z88.7 Allergy status to serum and vaccine
CPT/HCPCS: 99285; 71045; 80076; 80048; 83880; 85025; 85730; 84484; 36415; 93005; J7512; A4606; A4663; Q0144

== ENCOUNTER 2025-03-17 08:58 | Emergency (ER) | payer BC, OTHER ==
[~2025-03-17] VITALS: Ht 167.6 cm; Wt 74.8 kg
[~2025-03-17 08:58] MED LIST changes: +ACET1TAB23 PO; +AZIT500T PO; +PRED50TA PO
[2025-03-17 09:11] VITALS: BP 132/61
[2025-03-17] MEDS ORDERED: ACET10DR15 RIGHT EAR (09:38)
[2025-03-17] MEDS ORDERED: CARB15DR63 EACH EAR (09:38)
[2025-03-17 09:45] VITALS: BP 132/61; TEMP 98; O2SAT 99
== END 2025-03-17 09:43 | disposition home or self-care (01) ==
LOC: ER 08:58
DX: H66.91 Otitis media, unspecified, right ear (principal); H61.20 Impacted cerumen, unspecified ear; I11.9 Hypertensive heart disease without heart failure; Z79.52 Long term (current) use of systemic steroids; Z79.899 Other long term (current) drug therapy; Z88.0 Allergy status to penicillin; Z88.7 Allergy status to serum and vaccine
CPT/HCPCS: A4606; A4663